=== PATIENT | female | born 1970 | race Caucasian/White ===

== ENCOUNTER 2017-11-04 15:20 | Outpatient (CLI) | payer OTHER ==
[2017-11-04 17:09] LABS: BHCG - Serum Negative (NEGATIVE); Hemoglobin 13.7 g/dL (12.0-16.0); Mean Corpuscular HGB CONC 34.8 g/dL (32.0-36.0); Mean Corpuscular Hemoglobin 31.6 pg (27.0-31.0); Mean Corpuscular Volume 90.8 fl (81.0-99.0); Mean Platelet Volume 7.2 fL (7.4-10.4); Platelet Count 225 thou/uL (130-400); Pregs Control Background? CLEAR/WHITE (CLR/WHITE); Pregs Control Bar Appear? YES (CONTROL BAR); RBC Distribution Width 10.9 % (11.5-14.5); Red Blood Cell (RBC) Count 4.35 mill/uL (4.20-5.40)
== END 2017-11-04 15:21 | disposition home or self-care (01) ==
LOC: LABBT 15:20
PROVIDERS: ATTEND Student in an Organized Health Care Education/Training Program
DX: Z01.812 Encounter for preprocedural laboratory examination (principal); D25.9 Leiomyoma of uterus, unspecified; N92.1 Excessive and frequent menstruation with irregular cycle; N83.8 Other noninflammatory disorders of ovary, fallopian tube and broad ligament
CPT/HCPCS: 84703; 85027; 86850; 86900; 86901

== ENCOUNTER 2017-11-09 05:50 | Day surgery (SDC) | payer OTHER ==
[2017-11-04 16:16] VITALS: BMI 20.2
[2017-11-09] MEDS ORDERED: Gabapentin 300 MG CAP ONE (06:12)
[2017-11-09] MEDS ORDERED: CEFAZOLIN/Water 2 GM/20 ML SYRINGE ONE (06:15)
[2017-11-09] MEDS ORDERED: CeleCOXIB 100 MG CAP ONE (06:16)
[2017-11-09] MEDS ORDERED: Famotidine/PF 20 mg/2ml Vial ONE (06:17)
[2017-11-09] MEDS ORDERED: Bupivacaine HCl 0.5%/Epinephrine 1:200,000/PF 30 ml Vial ONE (06:29)
[2017-11-09] MEDS ORDERED: Fentanyl 250 MCG/5 ML VIAL ONE (06:40)
--- NOTE | 2017-11-09 07:40 | HP ---
DATE OF SURGERY: 11/09/2017 CHIEF COMPLAINT: Menometrorrhagia and complex right ovarian cyst. HISTORY OF PRESENT ILLNESS: A 46-year-old G1, P1 with increasing frequency and heaviness of menses with associated severe painful cramping over the last 4 months. Menses have been occurring every 2 weeks, lasting 7-14 days that are heavy, changing pads hours. She denies any abnormal discharge, any bowel or bladder symptoms. She denies any abdominal pain other than her menstrual cramps. She had an ultrasound that showed retroverted uterus measuring 8.4 x 4.84 x 6.77 cm. Fibroid was noted partially invading the lining like a type 2 submucous fibroid 2.53 x 1.60 confirmed on 3D ultrasound. Her right ovary was normal. Her left ovary showed a hemorrhagic cyst with some additional follicles and had a moderate amount of free fluid noted. She had preoperative endometrial biopsy that was benign as well as negative CA-125, CA-19-9 and CEA, also had a negative Pap HPV. She desires to undergo definitive management with hysterectomy and left salpingo-oophorectomy. CURRENT MEDICATIONS: None. PAST MEDICAL HISTORY: Denies. PAST SURGICAL HISTORY: Denies. HARDWARE ENGINEERING MANAGER HISTORY: G1, P1, x1 6 pounds. GYNECOLOGIC HISTORY: No abnormal Paps, no STDs. SOCIAL HISTORY: Negative x3. ALLERGIES: No known drug allergies. REVIEW OF SYSTEMS: Negative except as noted in HPI. PHYSICAL EXAMINATION: VITAL SIGNS: Blood pressure 120/80, pulse 76, weight is 145, respirations 18. BMI is 20.2. GENERAL: No acute distress. CARDIAC: Regular rate and rhythm. LUNGS: Clear to auscultation bilaterally. ABDOMEN: Soft, nontender, nondistended. EXTREMITIES: No edema, cyanosis or clubbing. PELVIC: Deferred to the OR. ASSESSMENT AND PLAN: A 46-year-old P1 with menometrorrhagia, dysmenorrhea, submucous fibroid and left abnormal appearing ovary with free fluid. I counseled the patient on options for management extensively including conservative measures with observation of left ovary or medical treatment of menorrhagia versus surgical treatment including ablation and hysterectomy secondary to the patient's submucous fibroid. She desires definitive management with hysterectomy as well as removal of left ovary, retention of right ovary and bilateral salpingectomy. Plan to get washings of free fluid intraoperatively this time. There is a very low concern for any malignancy based on her preoperative imaging and tumor markers. Discussed risk of surgery to include bleeding, transfusion, infection, damage to surrounding structures including bowel, bladder, ureter, blood vessels and nerves. The patient understands and wishes to proceed. The patient will follow up with me in 2 weeks' time. MARIN
--- NOTE | 2017-11-09 09:58 | OP ---
DATE OF OPERATION: 11/09/2017 PREOPERATIVE DIAGNOSES: 1. Menometrorrhagia. 2. Uterine fibroids. 3. Left complex ovarian cyst, pelvic free fluid. POSTOPERATIVE DIAGNOSES: 1. Menometrorrhagia. 2. Uterine fibroids. 3. Left complex ovarian cyst, pelvic free fluid. 4. Endometriosis. PROCEDURES: Robotic-assisted total laparoscopic hysterectomy, left salpingo-oophorectomy and right s alpingectomy. ANESTHESIA: General endotracheal. ATTENDING SURGEON: Miladys Toro M.D. DOLLY OPERATOR SURGEON: Elmer Jones D.O. ESTIMATED BLOOD LOSS: 50 mL. URINE OUTPUT: 200 mL of clear urine. PATHOLOGY: Uterus, cervix, bilateral fallopian tubes and left ovary and pelvic free fluid for cytolo gy. COMPLICATIONS: None. DRAINS: None. FINDINGS: Uterus sounded to 10 cm. Cervix was normal appearing. The uterus had normal contours on intraabdominal survey. The liver edge was within normal limits. The bowel was normal appearing. Th e right ovary was normal appearing. The right fallopian tube had bluish endometriosis present and le ft fallopian tube was normal, left ovary was enlarged with cystic changes as well as endometriosis pr esent. There were few endometriotic implants on the right posterior pelvis and perirectal space supe rficial appearing and some cul-de-sac implants as well. OPERATIVE TECHNIQUE: The patient was taken to the operating room where general anesthesia was obtaine d without difficulty. The patient was prepped and draped in a sterile fashion in dorsal lithotomy po sition. Rowley catheter was placed in the bladder. Speculum placed in the vagina. Anterior lip of t he cervix was grasped with single tooth tenaculum. The uterus then sounded to 10 cm and the ERLINDA 2 m anipulator was assembled with a 10 cm tip and a 4 cm colpotomizer ring. The manipulator tip was inse rted to the uterine fundus, balloon was inflated. The colpotomizer ring was advanced to fit snugly a round the cervix and speculum and tenaculum were removed out of vagina. A vaginal occluder balloon w as inflated and legs were placed in low lithotomy. Attention was turned to the abdomen. A 12 mm inc ision was made in the umbilicus after infiltrating with 0.25% Marcaine with epinephrine. The Veress needle was passed into the abdomen noting an opening pressure of 0 mmHg. Pneumoperitoneum was obtain ed. The Veress needle was removed and the 12 mm trocar was advanced without difficulty and confirmed placement with the robotic camera. Steep Trendelenburg was obtained. The right and left 8 mm robot ic trocars were placed under direct visualization after infiltrating with 0.25% Marcaine with epineph rine. An 11 mm right upper quadrant port was placed under direct visualization after infiltrating wi th local anesthetic under direct visualization. The robot was then docked from the right robotic arm contained the monopolar scissors, left robotic arm contained a fenestrated bipolar. The surgeon bryant yates took control and the pelvic fluid was suctioned and sent for cytology. The uterus was then ante verted and the right fallopian tube was grasped. A window was made in the mesosalpinx and the distal fimbriated end was cauterized with the fenestrated and transected with the scissors. The medial por tion was clamped across, cauterized and transected with the scissors and removed out of the abdomen. The utero-ovarian on the right was cauterized multiple times and transected with the scissors and ta christiano down to the round ligament that was cauterized in the midportion and transected and open up the a nterior and posterior leaf of the broad ligament. The anterior leaf of the broad ligament was then i ncised to the level of the bladder. Undermining with the fenestrated to dissect through the retroper itoneum. The posterior leaf of the broad ligament was dropped down to the level of the uterosacral. The ureter was noted to be running laterally and the uterine vessels were skeletonized to drop away the retroperitoneal fibers and further drop away the ureter. The bladder flap was then created under mining the peritoneum with the fenestrated incising with the scissors to ensure a clear window. The adventitial fibers of the peritoneum were taken down with the scissors and the pubocervical fascia wa s visualized as well as top of the colpotomizer ring and the bladder was taken down well below the le maren of the colpotomizer ring bluntly with the scissors cauterizing bladder pillars to ensure hemostas is. Attention was turned to the left side where the fallopian tube was grasped and elevated. The in fundibulopelvic ligament was noted as well as the ureter running medially. The ovary was hugged and clamped, cauterized with the fenestrated x2 and transected in the middle with the scissors and this w as taken through the mesovarium cauterizing and transecting down to the round ligament that was caute rized in the midportion and transected with the scissors. The anterior leaf of the broad ligament wa s opened up to the level of the bladder flap. The posterior leaf of the broad ligament was taken cong n to the uterosacral and the vessels were easily visible and skeletonized and the posterior leaf was opened up and the vessels were traced down posteriorly where the ureter crossed underneath the vessel s to ensure no ureteral injury. The vessels were adequately skeletonized and then cauterized with fe nestrated. The right uterine pedicle was then also cauterized multiple times with the fenestrated. Posterior colpotomy was then performed maintaining the attachment of the uterosacral ligaments to the vaginal cuff and anterior colpotomy was performed. The lateral pedicle was spared during this time to allow even more room between the area of cauterization and transection and the ureter. The pedicl es were then transected against the uterus to allow the pedicle to fall away from the area of the vag inal cuff closure bilaterally and hemostasis was noted. The uterus was then removed into the vagina as a means to maintain pneumoperitoneum. Hemostasis was achieved of the vaginal cuff and irrigation w as performed. The vaginal cuff was then closed with a 2-0 Stratafix suture in a running fashion and noting incorporation of vaginal mucosa and posterior peritoneum in each bite. This was runback acros s for second layer. The ureters were again noted to be running laterally and excellent closure was n oted as well as hemostasis. Low pressure check was performed. Irrigation was again performed. The single lumen ON-Q pump was placed through the anterior abdominal wall and the catheter was threaded i nto the pelvis and the ovarian fossa bilaterally and this was secured on the abdomen and test dose wa s performed. All instruments were removed from the abdomen. The robot was undocked and pneumoperito neum was released. The fascia of the umbilical port was closed with 0 Vicryl in a [id number]-ig-pcygx fa shion. The skin was closed with a 4-0 Monocryl in a subcuticular fashion. Dermabond was applied. T he uterus was removed from the vagina. The cuff was checked as well as the introitus and there was n o injury. An excellent hemostasis in closure of the cuff was noted. All instruments were removed fr om the vagina. The patient tolerated procedure well. Sponge, lap and needle counts were correct x2. The patient was taken to recovery in stable condition.
[2017-11-09] MEDS ORDERED: Morphine 4 MG/ML VIAL IV PRN (10:07)
[2017-11-09] MEDS ORDERED: Ketorolac Tromethamine 30 MG/ML VIAL IVP PRN ×2 (10:07→18:20)
[2017-11-09] MEDS ORDERED: Ropivacaine 0.2% 550 ML 550 ML NERVE BLCK SCH (10:15)
[2017-11-09] MEDS ORDERED: Ketorolac Tromethamine 30 MG/ML VIAL ONE (11:36)
[2017-11-09] MEDS ORDERED: Glycopyrrolate 0.2 MG/ML 5 ML SYRINGE ONE (11:36)
[2017-11-09] MEDS ORDERED: ePHEDrine/0.9% NaCl/PF SYRINGE 50 mg/10 ml ONE (11:36)
[2017-11-09] MEDS ORDERED: Lidocaine 1% PF 5 ML VIAL ONE (11:36)
[2017-11-09] MEDS ORDERED: PROPOFOL 200 MG/20 ML VIAL ONE (11:36)
[2017-11-09] MEDS ORDERED: Ondansetron HCl/PF 4 MG/2 ML Vial ONE (11:36)
[2017-11-09] MEDS ORDERED: Dexamethasone 20 MG/5 ML VIAL ONE ×2 (11:36)
[2017-11-09] MEDS ORDERED: Simethicone Chewable 80 MG TAB PO PRN (18:18)
[2017-11-09] MEDS ORDERED: Zolpidem Tartrate 5 MG TAB PO PRN (18:18)
[2017-11-09] MEDS ORDERED: Morphine 4 MG/ML VIAL SLOW IVP PRN (18:18)
[2017-11-09] MEDS ORDERED: Ondansetron HCl/PF 4 MG/2 ML Vial IVP PRN (18:18)
[2017-11-09] MEDS ORDERED: HYDROcodone/Acetaminophen 5/325 mg Tablet PO PRN ×2 (18:18)
[2017-11-09] MEDS ORDERED: Acetaminophen 325 MG TAB PO PRN (18:18)
[2017-11-09] MEDS ORDERED: Bisacodyl 10 MG SUPP PR PRN (18:18)
[2017-11-09] MEDS ORDERED: diphenhydrAMINE 25 MG CAP PO PRN (18:18)
[2017-11-14] MEDS ORDERED: Ibuprofen 800 MG TAB PO SCH (22:00)
== END 2017-11-09 20:30 | disposition home or self-care (01) ==
LOC: SDC 05:50
PROVIDERS: ATTEND Student in an Organized Health Care Education/Training Program
PROC: 0UT14ZZ Resection of Left Ovary, Percutaneous Endoscopic Approach (ICD-10-PCS; principal; 2017-11-09)
PROC: 0UT94ZZ Resection of Uterus, Percutaneous Endoscopic Approach (ICD-10-PCS; principal; 2017-11-09)
PROC: 0UT74ZZ Resection of Bilateral Fallopian Tubes, Percutaneous Endoscopic Approach (ICD-10-PCS; principal; 2017-11-09)
DX: D25.9 Leiomyoma of uterus, unspecified (principal); N84.0 Polyp of corpus uteri; N83.02 Follicular cyst of left ovary; N83.8 Other noninflammatory disorders of ovary, fallopian tube and broad ligament
CPT/HCPCS: 51798; 88112; 88305; 88307; A4306; J0131; J0670; J1100; J1885; J2001; J2405; J2704; J2795; J3010; S0028

== ENCOUNTER 2017-11-29 21:49 | Emergency (ER) | payer OTHER ==
[2017-11-29 22:11] LABS: Bilirubin Negative (Negative); Blood, Urine Large (Negative); Clarity CLEAR (Clear); Glucose, Urine (Dipstick) Negative (Negative); Leukocyte Negative (Negative); Nitrite Negative (Negative); Protein, Urine (Dipstick) Negative (Neg-Trace); Specific Gravity, Urine 1.006 (1.002-1.036); Urobilinogen 0.2 mg/dL (0.2-1.0); pH, Urine 7.5 (5.0-9.0)
[2017-11-29 22:13] LABS: Bacteria/HPF None Seen HPF (None Seen); Hyaline Casts/LPF 0-3 HYALINE CAST LPF (0-3 Hyaline); RBC/HPF GREATER THAN 50-TNTC HPF (0-3); Squamous Epithelial None Seen HPF (0-3); WBC/HPF 0-3 HPF (0-3)
[2017-11-29 22:23] LABS: #Basophils 0.1 thou/uL (0.0-0.2); #Eosinphils 0.3 thou/uL (0.0-0.7); #Lymphocytes 2.2 thou/uL (1.20-3.40); #Monocytes 0.7 thou/uL (0.11-0.59); #Neutrophils 3.6 thou/uL (1.40-6.50); %Basophils 1.1 % (0.0-1.0); %Eosinophils 4.2 % (0.0-10.0); %Lymphocytes 31.9 % (21.0-51.0); %Monocytes 10.4 % (0.0-10.0); %Neutrophils 52.4 % (42.0-75.0); Hemoglobin 14.4 g/dL (12.0-16.0); Mean Corpuscular HGB CONC 34.5 g/dL (32.0-36.0); Mean Corpuscular Hemoglobin 30.8 pg (27.0-31.0); Mean Corpuscular Volume 89.2 fl (81.0-99.0); Mean Platelet Volume 6.7 fL (7.4-10.4); Platelet Count 280 thou/uL (130-400); RBC Distribution Width 10.8 % (11.5-14.5); Red Blood Cell (RBC) Count 4.67 mill/uL (4.20-5.40); White Blood Cell (WBC) Count 6.9 thou/uL (4.8-10.8)
[2017-11-29 22:44] LABS: ALT (SGPT) 17 U/L (8-55); AST (SGOT) 16 U/L (5-34); Albumin 4.3 g/dL (3.5-5.0); Alkaline Phosphatase 57 U/L (40-150); Anion Gap 12 mmol/L (10-20); BUN (Urea Nitrogen) 9 mg/dL (7.0-18.7); Bilirubin, Total 0.6 mg/dL (0.2-1.2); Calc. Creatinine Clearance 0 mL/min (70-130); Calcium 9.1 mg/dL (7.8-10.44); Carbon Dioxide 27 mmol/L (22-29); Chloride 103 mmol/L (98-107); Estimated GFR-MDRD 79; Globulin 3.2 g/dL (2.4-3.5); Glucose 117 mg/dL (70-105); Potassium 3.8 mmol/L (3.5-5.1); Protein, Total 7.5 g/dL (6.0-8.3); Sodium 138 mmol/L (136-145)
[2017-11-29] MEDS ORDERED: Ferric Subsulfate 8 ML BOT TOP SCH (23:30)
--- NOTE | 2017-11-30 00:04 | PRG ---
DATE OF SERVICE: 11/29/2017 TIME OF SERVICE: 2330 hours. ED NOTE PRESENTING COMPLAINT: Bleeding 20 days post hysterectomy. HISTORY OF PRESENT ILLNESS: Ms. Azar is a 46-year-old who underwent a TLH, bilateral salpingect zaki, right salpingo-oophorectomy for fibroids and endometrioma on 11/09/2017. She had an uncomplicat ed postoperative course. She reports that during the day today, she began bleeding vaginally. She r eports that she is changing her pad approximately every 30-45 minutes. She denies dizziness or synco pe. She denies fever. OBSTETRIC AND GYNECOLOGIC HISTORY: x1. No history of STDs or abnormal paps. PAST MEDICAL HISTORY: None. PAST SURGICAL HISTORY: Aforementioned LAYOUT ARTIST surgery only. ALLERGIES: Denies. MEDICATIONS: None. SOCIAL HISTORY: Denies tobacco, alcohol, or drug abuse. FAMILY HISTORY: Noncontributory. REVIEW OF SYSTEMS: Noncontributory. PHYSICAL EXAMINATION: GENERAL: The patient is resting with a pulse of 89, respirations 18, blood pressure 118/72. She is afebrile. HEENT: Within normal limits. LUNGS: Clear to auscultation bilaterally. HEART: Regular rhythm. ABDOMEN: Soft and nontender without rebound or guarding. GENITOURINARY: Vulva, the patient has blood on the perineum. EXTREMITIES: Without clubbing, cyanosis, or edema. Speculum exam reveals moderate clot with some bright red blood in the vagina. This was swabbed out w ith a rectal swab, and the patient was noted to have a couple small areas of active bleeding along th e cuff without disruption of the cuff, without induration or purulence. No evidence of infection. M onsel's solution was applied across this area several times. It seemed to achieve a significant redu ction in the amount of bleeding and it did not bleed when pressure was held against it. Kerlix spong e was applied with Monsel's on the end of it to the area in the vagina, and the patient tolerated the procedure well. The patient was offered observation admission with removal in the hospital in the m orning versus close followup with Dr. Toro at [facility]. She opted to go home and follow up closely with Dr. Toro. We will contact Dr. Toro and her nurse and have them foll ow up with the patient early in the morning for removal of the Kerlix sponge in the vagina in the off ice, and reexamination at that time.
== END 2017-11-30 00:02 | disposition home or self-care (01) ==
LOC: ERS 21:49
DX: N99.820 Postprocedural hemorrhage of a genitourinary system organ or structure following a genitourinary system procedure (principal)
CPT/HCPCS: 36415; 80053; 81003; 81015; 85025; 99284

== ENCOUNTER 2017-12-01 20:13 | Observation (INO) | payer OTHER ==
[2017-12-01 20:59] LABS: #Basophils 0.1 thou/uL (0.0-0.2); #Eosinphils 0.2 thou/uL (0.0-0.7); #Lymphocytes 1.6 thou/uL (1.20-3.40); #Monocytes 0.6 thou/uL (0.11-0.59); #Neutrophils 5.3 thou/uL (1.40-6.50); %Basophils 0.9 % (0.0-1.0); %Lymphocytes 20.5 % (21.0-51.0); %Monocytes 7.7 % (0.0-10.0); %Neutrophils 67.9 % (42.0-75.0); Mean Corpuscular HGB CONC 35.4 g/dL (32.0-36.0); Mean Corpuscular Hemoglobin 31.5 pg (27.0-31.0); Mean Platelet Volume 6.6 fL (7.4-10.4); Platelet Count 266 thou/uL (130-400); RBC Distribution Width 10.8 % (11.5-14.5); Red Blood Cell (RBC) Count 4.46 mill/uL (4.20-5.40); White Blood Cell (WBC) Count 7.8 thou/uL (4.8-10.8)
[2017-12-01] MEDS ORDERED: Morphine 4 MG/ML VIAL SLOW IVP PRN (21:16)
[2017-12-01] MEDS ORDERED: Bisacodyl 10 MG SUPP PR PRN (21:16)
[2017-12-01] MEDS ORDERED: Promethazine HCl 25 MG/ML VIAL IM PRN (21:16)
[2017-12-01] MEDS ORDERED: diphenhydrAMINE 25 MG CAP PO PRN (21:16)
[2017-12-01] MEDS ORDERED: Simethicone Chewable 80 MG TAB PO PRN (21:16)
[2017-12-01] MEDS ORDERED: Zolpidem Tartrate 5 MG TAB PO PRN (21:16)
[2017-12-01 21:18] LABS: ALT (SGPT) 14 U/L (8-55); AST (SGOT) 14 U/L (5-34); Albumin 4.5 g/dL (3.5-5.0); Alkaline Phosphatase 57 U/L (40-150); Anion Gap 13 mmol/L (10-20); BUN (Urea Nitrogen) 9 mg/dL (7.0-18.7); Bilirubin, Total 0.7 mg/dL (0.2-1.2); Calc. Creatinine Clearance 0 mL/min (70-130); Calcium 9.1 mg/dL (7.8-10.44); Carbon Dioxide 27 mmol/L (22-29); Chloride 102 mmol/L (98-107); Estimated GFR-MDRD 83; Globulin 3.3 g/dL (2.4-3.5); Glucose 99 mg/dL (70-105); Potassium 3.8 mmol/L (3.5-5.1); Protein, Total 7.8 g/dL (6.0-8.3); Sodium 138 mmol/L (136-145)
[2017-12-01] MEDS ORDERED: Sodium Chloride 0.9% 1,000 ML IV SCH (21:30)
[2017-12-02 05:26] LABS: Mean Corpuscular HGB CONC 34.8 g/dL (32.0-36.0); Mean Corpuscular Hemoglobin 31.1 pg (27.0-31.0); Mean Corpuscular Volume 89.5 fl (81.0-99.0); Mean Platelet Volume 6.9 fL (7.4-10.4); Platelet Count 230 thou/uL (130-400); RBC Distribution Width 10.9 % (11.5-14.5); Red Blood Cell (RBC) Count 3.85 mill/uL (4.20-5.40); White Blood Cell (WBC) Count 6.6 thou/uL (4.8-10.8)
[2017-12-02 05:51] VITALS: TEMP 98.2
[2017-12-02] MEDS ORDERED: Lidocaine 1% w/Epinephrine 1:200K 30 ML VIAL ONE (06:43)
[2017-12-02] MEDS ORDERED: Fentanyl 100 MCG/2 ML VIAL ONE (06:44)
[2017-12-02] MEDS ORDERED: Midazolam HCl 2 mg/2 ml Vial ONE (06:44)
[2017-12-02] MEDS ORDERED: Propofol 500 MG/50 ML VIAL ONE (06:59)
[2017-12-02] MEDS ORDERED: Lidocaine 2% Jelly 5 ML TUBE ONE (07:02)
[2017-12-02 09:04] VITALS: BP 166/70
--- NOTE | 2017-12-02 10:38 | OP ---
DATE OF PROCEDURE: 12/01/2017 PREOPERATIVE DIAGNOSES: Postoperative hysterectomy, vaginal bleeding. POSTOPERATIVE DIAGNOSES: Postoperative hysterectomy, vaginal bleeding. PROCEDURE: Exam under anesthesia, an oversew of vaginal cuff. ESTIMATED BLOOD LOSS: 10 mL. INTRAVENOUS FLUIDS: 800 mL crystalloid. URINE OUTPUT: 75 mL of clear urine at the beginning. ANESTHESIA: TIVA. ATTENDING SURGEON: Miladys Toro M.D. FIREWALL ENGINEER: None. COMPLICATIONS: None. DRAINS: None. PATHOLOGY: None. FINDINGS: Vaginal cuff was intact. There was active bleeding from the anterior mid portion of the v aginal cuff edge. There was no dehiscence present. This was hemostatic after suturing. No erythema , induration of vaginal cuff tissue. OPERATIVE TECHNIQUE: The patient was taken to the operating room where IV anesthesia was obtained wi thout difficulty. The patient was prepped and draped in a sterile fashion in the [facility] . A weighted speculum was placed in the vagina and anteriorly was retracted with the Sim. The vagin al cuff was grasped with an Allis and active bleeding portion was noted. Cautery was performed and h emostasis was achieved. Oversew of the cuff was performed in 2 layers with 0 Vicryl in a running loc renate fashion. Hemostasis was noted to be excellent. The vagina was irrigated with saline and all in struments were removed from the vagina. The patient tolerated procedure well. Sponge, lap, needle c ounts were correct x2. The patient was taken to recovery room in stable condition.
[2017-12-02] MEDS ORDERED: PROPOFOL 200 MG/20 ML VIAL ONE (13:06)
== END 2017-12-02 09:29 | disposition home or self-care (01) ==
LOC: ERS 20:13 → 3SE 21:00
PROVIDERS: ADMIT Student in an Organized Health Care Education/Training Program; ATTEND Student in an Organized Health Care Education/Training Program
PROC: 0UQGXZZ Repair Vagina, External Approach (ICD-10-PCS; principal; 2017-12-02)
DX: N99.820 Postprocedural hemorrhage of a genitourinary system organ or structure following a genitourinary system procedure (principal)
CPT/HCPCS: 36415; 80053; 85025; 85027; 86850; 86900; 86901; 96360; 96361; 99285; A4216; G0378; J2250; J2704; J3010

== ENCOUNTER 2017-12-16 14:50 | Observation (INO) | payer OTHER ==
[~2017-12-16 14:50] MED LIST: Dexamethasone 20 MG/5 ML VIAL ONE; Glycopyrrolate 0.2 MG/ML 5 ML SYRINGE ONE; Lidocaine 1% PF 5 ML VIAL ONE; PHENYLEPHRINE-NS 100 MCG/ML 10 ML SYRINGE ONE; PROPOFOL 200 MG/20 ML VIAL ONE; Succinylcholine Chloride 20 MG/ML 10 ml SYRINGE FS ONE
[2017-12-16] MEDS ORDERED: CEFAZOLIN/Water 2 GM/20 ML SYRINGE ONE (14:56)
[2017-12-16 15:12] LABS: Hemoglobin 10.8 g/dL (12.0-16.0); Mean Corpuscular HGB CONC 34.3 g/dL (32.0-36.0); Mean Corpuscular Hemoglobin 30.4 pg (27.0-31.0); Mean Corpuscular Volume 88.4 fl (81.0-99.0); Mean Platelet Volume 7.5 fL (7.4-10.4); Platelet Count 225 thou/uL (130-400); RBC Distribution Width 10.6 % (11.5-14.5); Red Blood Cell (RBC) Count 3.57 mill/uL (4.20-5.40); White Blood Cell (WBC) Count 6.9 thou/uL (4.8-10.8)
[2017-12-16 15:42] LABS: ALT (SGPT) 12 U/L (8-55); AST (SGOT) 14 U/L (5-34); Alkaline Phosphatase 52 U/L (40-150); Anion Gap 13 mmol/L (10-20); BUN (Urea Nitrogen) 7 mg/dL (7.0-18.7); Bilirubin, Total 0.8 mg/dL (0.2-1.2); Calc. Creatinine Clearance 0 mL/min (70-130); Calcium 8.7 mg/dL (7.8-10.44); Carbon Dioxide 25 mmol/L (22-29); Chloride 103 mmol/L (98-107); Estimated GFR-MDRD 77; Globulin 2.9 g/dL (2.4-3.5); Glucose 196 mg/dL (70-105); Potassium 3.5 mmol/L (3.5-5.1); Protein, Total 6.9 g/dL (6.0-8.3); Sodium 137 mmol/L (136-145)
[2017-12-16] MEDS ORDERED: Midazolam HCl 2 mg/2 ml Vial ONE (15:42)
[2017-12-16] MEDS ORDERED: Fentanyl 100 MCG/2 ML VIAL ONE (15:42)
[2017-12-16] MEDS ORDERED: Bupivacaine HCl 0.5%/Epinephrine 1:200,000/PF 30 ml Vial ONE (16:04)
[2017-12-16] MEDS ORDERED: Zolpidem Tartrate 5 MG TAB PO PRN (17:46)
[2017-12-16] MEDS ORDERED: Simethicone Chewable 80 MG TAB PO PRN (17:46)
[2017-12-16] MEDS ORDERED: diphenhydrAMINE 25 MG CAP PO PRN (17:46)
[2017-12-16] MEDS ORDERED: Ondansetron HCl/PF 4 MG/2 ML Vial IVP PRN ×2 (17:46→17:51)
[2017-12-16] MEDS ORDERED: Acetaminophen 500 MG TAB PO PRN (17:46)
[2017-12-16] MEDS ORDERED: Bisacodyl 10 MG SUPP PR PRN (17:46)
[2017-12-16] MEDS ORDERED: Ibuprofen 800 MG TAB PO PRN (17:46)
[2017-12-16] MEDS ORDERED: traMADol HCl 50 MG TAB PO PRN ×2 (17:46)
[2017-12-16] MEDS ORDERED: Promethazine HCl 25 MG/ML VIAL IM PRN ×2 (17:46→17:51)
[2017-12-16] MEDS ORDERED: Promethazine HCl 25 MG/ML VIAL SLOW IVP PRN (17:51)
[2017-12-16] MEDS ORDERED: Meperidine HCl/PF 25 MG/ML VIAL SLOW IVP PRN (17:51)
[2017-12-16] MEDS ORDERED: Ketorolac Tromethamine 30 MG/ML VIAL IVP PRN (17:51)
[2017-12-16] MEDS ORDERED: cefTRIAXone\\ROCEPHIN 1 GM in Sodium Chloride 0.9% 100 ML IVPB SCH ×2 (18:00→20:00)
[2017-12-16] MEDS ORDERED: Meperidine HCl/PF 25 MG/ML VIAL ONE (18:07)
[2017-12-16 20:35] VITALS: BMI 18.8
--- NOTE | 2017-12-16 22:12 | OP ---
DATE OF OPERATION: 12/16/2017 PREOPERATIVE DIAGNOSIS: Postoperative vaginal bleeding. POSTOPERATIVE DIAGNOSIS: Postoperative vaginal bleeding. PROCEDURES: Diagnostic laparoscopy, oversew of the vaginal cuff via vaginal approach. ANESTHESIA: General endotracheal. ATTENDING SURGEON: Miladys Toro MD CORPORATE BANKING OFFICER SURGEON: None. COMPLICATIONS: None. DRAINS: None. ESTIMATED BLOOD LOSS: 20 mL INTRAVENOUS FLUIDS: 1300 mL crystalloid. URINE OUTPUT: 500 mL of clear urine. PATHOLOGY: None. FINDINGS: On intraabdominal survey, the upper abdomen is normal. The appendix was normal. There we re no intraabdominal adhesions. The posterior cul-de-sac and vaginal cuff are within normal limits w ith slight postoperative changes. There is no induration or fluid collections in the pelvis. The ad nexa are normal appearing. The right ovary is present and the left ovary is surgically absent. Ther e was no active bleeding. On vaginal exam, there is a slow ooze from the right edge of the vaginal c uff. The suture material from the previous oversew was removed and the cuff was oversewn in two laye rs with 0 Vicryl with excellent hemostasis. FloSeal was placed over the vaginal cuff and the second look on laparoscopy noted. No suture material had entered into the intraperitoneal cavity. OPERATIVE TECHNIQUE: The patient was taken to the operating room where general anesthesia was obtain ed without difficulty. The patient was prepped and draped in a sterile fashion in the dorsal lithoto my position. A Rowley catheter was placed in the bladder. A sponge stick was placed in the vagina. Attention was turned to the abdomen. A 0.5% Marcaine with epinephrine was infiltrated into the umbil icus. A 5-mm skin incision was made in the umbilicus and the Veress needle was passed into the abdom en noting an opening pressure of 2 mmHg. Pneumoperitoneum was obtained without difficulty. Veress n eedle was removed. The 5-mm trocar and camera were passed into the abdomen optically and a steep Antione ndelenburg was obtained. A 5-mm port was then placed in the left lower quadrant under direct visuali zation after infiltrating with 0.5% Marcaine with epinephrine. The above findings were noted and stewart to documentation was performed since there was no source of bleeding into the abdomen. Pneumoperiton eum was released and the instruments were removed out of the abdomen. Attention was turned to the va domi where a speculum was placed in the vagina, the cup was visualized and the area of active bleedin g was noted. This area on the right side was grasped with an Allis clamp and part of the upper vagin al cuff did appear to be freshly, oozy, and healthy tissue was noted. There was no induration or nayla thema of the vaginal cuff and the sutures from the prior cuff over so were then removed and the anter ior and posterior vaginal aguirre were grasped with Allis clamps and everted as much as possible and th is was carefully sewn with a 0 Vicryl in a running fashion all across the length of the cuff and a se cond layer was placed of 0 Vicryl in a running fashion. There was absolutely no bleeding after this was performed. Irrigation of the cuff was performed and FloSeal was placed over the vaginal cuff, ag ain previously noting absolutely no active bleeding. All instruments were removed out of the vagina. A second look with the laparoscope was performed, noting no suture material passed into the abdomen during that repair and no other bleeding occurred. Rowley catheter was removed out of the bladder. The patient tolerated procedure well. Sponge, lap, needle counts were correct x2. The patient was t aken to recovery in stable condition. Patient received Ancef 2 grams prior to the procedure.
[2017-12-17 05:51] LABS: Hemoglobin 8.2 g/dL (12.0-16.0); Mean Corpuscular HGB CONC 35.3 g/dL (32.0-36.0); Mean Corpuscular Hemoglobin 31.1 pg (27.0-31.0); Mean Corpuscular Volume 88.3 fl (81.0-99.0); Mean Platelet Volume 7.3 fL (7.4-10.4); Platelet Count 210 thou/uL (130-400); RBC Distribution Width 10.7 % (11.5-14.5); Red Blood Cell (RBC) Count 2.64 mill/uL (4.20-5.40); White Blood Cell (WBC) Count 9.4 thou/uL (4.8-10.8)
[2017-12-17 08:16] VITALS: BP 131/76; TEMP 98.4
[2017-12-17] MEDS ORDERED: Lisinopril 5 MG TAB PO SCH (09:00)
--- NOTE | 2017-12-17 09:12 | PRG ---
DATE OF SERVICE: 12/17/2017 TIME OF VISIT: O745 The patient denies any pain complaints, had passed flatus and tolerated a regular diet. She has not taken any pain medicine overnight. No fever or chills. She has scant vaginal bleeding, voiding with out difficulty. OBJECTIVE: VITAL SIGNS: Blood pressure ranged from 137-152/71-83, pulse is 84, respirations 20, pulse ox 100%, temperature 98.4. GENERAL: No acute distress. HEART: Regular rate and rhythm. LUNGS: Clear to auscultation bilaterally. ABDOMEN: Soft, nontender, nondistended. Incisions clean, dry and intact x2. EXTREMITIES: No edema, cyanosis or clubbing. LABORATORY DATA: Hemoglobin 8.2, hematocrit 23.3, platelets 210, white count 9.4. ASSESSMENT AND PLAN: A 46-year-old status post diagnostic laparoscopy and vaginal cuff oversew fadi sharp to postoperative hemorrhage from the vaginal cuff. Discussed continue pelvic rest. We will cb e an additional week off work to rest at home as she does have some stress at her job. I have also r ecommended the patient read her blood pressure as it is very labile and has been severely elevated at times when the patient is stressed out, was started on lisinopril. She will need a follow up with h er primary doctor for this. She will need to start on a once daily, iron tablets, H&H has equilibrat ed and the patient is not symptomatic from her anemia and we will treat her with outpatient oral iron therapy. This anemia is secondary to acute blood loss. She will also start on stool softeners for regularity and she can take p.r.n. ibuprofen at home. She will follow up with me in 1 weeks' time. No labs or studies are pending at the time of discharge.
== END 2017-12-17 09:50 | disposition home or self-care (01) ==
LOC: SDC 14:50 → 3SE 17:46
PROVIDERS: ADMIT Student in an Organized Health Care Education/Training Program; ATTEND Student in an Organized Health Care Education/Training Program
PROC: 0UQG7ZZ Repair Vagina, Via Natural or Artificial Opening (ICD-10-PCS; principal; 2017-12-16)
PROC: 0WJG4ZZ Inspection of Peritoneal Cavity, Percutaneous Endoscopic Approach (ICD-10-PCS; 2017-12-16)
DX: N99.820 Postprocedural hemorrhage of a genitourinary system organ or structure following a genitourinary system procedure (principal); Z90.710 Acquired absence of both cervix and uterus
CPT/HCPCS: 36415; 80053; 85027; 86850; 86900; 86901; 96361; 96365; A4216; G0378; J0670; J0696; J1100; J2001; J2175; J2250; J2704; J3010; J7050

== ENCOUNTER 2018-09-19 14:49 | Outpatient (CLI) | payer OTHER ==
[2018-09-19 15:12] LABS: #Basophils 0.1 thou/uL (0.0-0.2); #Eosinphils 0.3 thou/uL (0.0-0.7); #Monocytes 0.7 thou/uL (0.11-0.59); #Neutrophils 3.1 thou/uL (1.40-6.50); %Basophils 1.6 % (0.0-1.0); %Eosinophils 4.2 % (0.0-10.0); %Lymphocytes 32.6 % (21.0-51.0); %Monocytes 10.7 % (0.0-10.0); %Neutrophils 50.9 % (42.0-75.0); Hemoglobin 14.7 g/dL (12.0-16.0); Mean Corpuscular HGB CONC 33.8 g/dL (32.0-36.0); Mean Corpuscular Hemoglobin 30.9 pg (27.0-31.0); Mean Corpuscular Volume 91.4 fL (78.0-98.0); Mean Platelet Volume 7.1 fL (7.4-10.4); Platelet Count 241 thou/uL (130-400); RBC Distribution Width 11.8 % (11.5-14.5); Red Blood Cell (RBC) Count 4.77 mill/uL (4.20-5.40); White Blood Cell (WBC) Count 6.1 thou/uL (4.8-10.8)
[2018-09-19 15:27] LABS: ALT (SGPT) 18 U/L (8-55); AST (SGOT) 20 U/L (5-34); Albumin 4.4 g/dL (3.5-5.0); Alkaline Phosphatase 70 U/L (40-150); Anion Gap 11 mmol/L (10-20); BUN (Urea Nitrogen) 8 mg/dL (7.0-18.7); Bilirubin, Total 0.9 mg/dL (0.2-1.2); Calc. Creatinine Clearance 0 mL/min (70-130); Carbon Dioxide 29 mmol/L (22-29); Cardiac Risk 2.5 (Less than 4.5); Chloride 102 mmol/L (98-107); Cholesterol 162 mg/dl (< 200 Desired); Estimated GFR-MDRD 81; Globulin 3.2 g/dL (2.4-3.5); Glucose 104 mg/dL (70-105); HDL Cholesterol 66 mg/dL (>60 Neg Risk); LDL Cholesterol, Calculated 77 mg/dL; Potassium 4.1 mmol/L (3.5-5.1); Protein, Total 7.6 g/dL (6.0-8.3); Sodium 138 mmol/L (136-145); Triglycerides 94 mg/dL (Less than 150)
[2018-09-19 15:58] LABS: Free T4 (Free Thyroxine) 0.95 ng/dL (0.70-1.48); Thyroid Stimulating Hormone 1.6476 uIU/mL (0.35-4.94)
--- NOTE | 2018-09-19 16:30 | MMO ---
BILATERAL SCREENING MAMMOGRAM: Date: 09/19/18 HISTORY: 47-year-old female. Routine screening mammography. COMPARISON: None. Study will be treated as a baseline mammogram. TECHNIQUE: CC and MLO views of both breasts are submitted for interpretation. This patient's mammogram was reviewed with the assistance of computer-aided detection. FINDINGS: The breasts are composed of heterogeneously dense fibroglandular tissue, which limits the sensitivity of mammography in the detection of underlying malignancy. Bilaterally, no suspicious dominant mass, architectural distortion, or suspicious calcification. Benign-appearing calcification left breast. IMPRESSION: BIRADS 2: Benign Finding(s) RECOMMENDATION: Annual mammogram. POS: JOSE
[2018-09-19 17:33] LABS: Vitamin D, 25 Hydroxy 10.7 ng/ml (> 30.0)
== END 2018-09-19 14:50 ==
LOC: SCSMAMMO 14:49
PROVIDERS: ATTEND Family Medicine
DX: Z12.31 Encounter for screening mammogram for malignant neoplasm of breast (principal)
CPT/HCPCS: 36415; 77067; 80053; 80061; 82306; 82607; 84439; 84443; 85025

== ENCOUNTER 2019-05-04 16:55 | Outpatient (CLI) | payer OTHER ==
[2019-05-04 17:18] LABS: #Basophils 0.1 thou/uL (0.0-0.2); #Eosinphils 0.1 thou/uL (0.0-0.7); #Lymphocytes 1.8 thou/uL (1.20-3.40); #Monocytes 0.6 thou/uL (0.11-0.59); %Basophils 1.2 % (0.0-1.0); %Eosinophils 2.6 % (0.0-10.0); %Lymphocytes 31.4 % (21.0-51.0); %Monocytes 10.3 % (0.0-10.0); %Neutrophils 54.5 % (42.0-75.0); Hemoglobin 13.8 g/dL (12.0-16.0); Mean Corpuscular HGB CONC 35.9 g/dL (32.0-36.0); Mean Corpuscular Hemoglobin 32.3 pg (27.0-31.0); Mean Corpuscular Volume 89.9 fL (78.0-98.0); Mean Platelet Volume 7.1 fL (7.4-10.4); Platelet Count 183 thou/uL (130-400); Red Blood Cell (RBC) Count 4.26 mill/uL (4.20-5.40); White Blood Cell (WBC) Count 5.6 thou/uL (4.8-10.8)
[2019-05-04 17:31] LABS: ALT (SGPT) 16 U/L (8-55); AST (SGOT) 18 U/L (5-34); Albumin 4.3 g/dL (3.5-5.0); Alkaline Phosphatase 53 U/L (40-110); Anion Gap 13 mmol/L (10-20); BUN (Urea Nitrogen) 7 mg/dL (7.0-18.7); Bilirubin, Total 0.9 mg/dL (0.2-1.2); Calc. Creatinine Clearance 0 mL/min (70-130); Carbon Dioxide 29 mmol/L (22-29); Chloride 106 mmol/L (98-107); Estimated GFR-MDRD 83; Globulin 2.9 g/dL (2.4-3.5); Glucose 79 mg/dL (70-105); Potassium 4.6 mmol/L (3.5-5.1); Protein, Total 7.2 g/dL (6.0-8.3); Sodium 143 mmol/L (136-145)
== END 2019-05-04 16:56 | disposition home or self-care (01) ==
LOC: LAB 16:55
PROVIDERS: ATTEND Family Medicine
DX: I10 Essential (primary) hypertension (principal); D75.89 Other specified diseases of blood and blood-forming organs; E55.9 Vitamin D deficiency, unspecified; E53.8 Deficiency of other specified B group vitamins
CPT/HCPCS: 36415; 80053; 82306; 82607; 85025